=== PATIENT | female | born 1990 | race Caucasian/White ===

== ENCOUNTER 2018-03-03 17:55 | Emergency (ER) | payer MEDICAID ==
[~2018-03-03] VITALS: Ht 149.9 cm; Wt 64.4 kg
[2018-03-03 18:56] LABS: HCG UR SG 1.014 (1.003-1.030); MICROSCOPIC AUTO
[2018-03-03 18:59] LABS: CULTURE INDICATED? YES
[2018-03-03 20:20] LABS: CLUE CELLS NONE SEEN (NONE SEEN); WET PREP WBCS FEW (FEW)
[2018-03-03] MEDS ORDERED: AZITHROMYCIN 250 MG TABLET PO STA (20:26)
[2018-03-03] MEDS ORDERED: CEFTRIAXONE 250 MG IM ONE (20:30)
[2018-03-03] MEDS ORDERED: AZITHROMYCIN 500 MG TABLET ONE (20:40)
[2018-03-03] MEDS ORDERED: LIDOCAINE-MPF 1%, 2ML ONE (20:40)
[2018-03-03] MEDS ORDERED: CEFTRIAXONE 250 MG ONE (20:41)
[2018-03-03 20:46] VITALS: BP 108/63
== END 2018-03-03 21:03 | disposition home or self-care (01) ==
LOC: ED 18:15
DX: A56.01 Chlamydial cystitis and urethritis (principal); A59.03 Trichomonal cystitis and urethritis
CPT/HCPCS: 81001; 81025; 87077; 87086; 87186; 87210; 87491; 87591; 87808; 96372; 99283; J0696